=== PATIENT | female | born 1940 | race Caucasian/White ===

== ENCOUNTER 2021-07-03 11:49 | Day surgery (SDC) | payer OTHER, BC ==
[2021-07-01 14:46] LABS: Absolute Lymphocytes (CBC) 1.8 K/uL (0.7-4.9); Basophils % 0.7 % (0-1.3); Hematocrit 38.6 % (36.0-45.0); Lymphocytes % 27.6 % (15.3-44.8); MPV 8.4 fL (7.6-11.3); RBC Red Blood Cell Count 4.26 M/uL (3.86-4.86)
[2021-07-01 15:05] LABS: Protime INR 0.97
--- NOTE | 2021-07-01 15:12 | RAD REPORT ---
EXAM DESCRIPTION: RAD - Chest Pa And Lat (2 Views) - 07/01/2021 2:45 pm CLINICAL HISTORY: Pre Op pending heart cath COMPARISON: Two view chest October 2019 TECHNIQUE: Frontal and lateral views of the chest were obtained. FINDINGS: The lungs are clear of acute infiltrate, mass or failure finding. Mild chronic interstitia l lung pattern matches the comparison. Heart size is normal and central vasculature is within padmini l limits. No pleural effusion or pneumothorax seen. No acute bony finding noted. No aortic abnorma lity. IMPRESSION: No acute cardiopulmonary process. No significant change from comparison study.
[~2021-07-03 11:49] MED LIST: HEPA 1000U/500MLS 2,000 UNIT/1,000 ML BAG IV ONE; LIDOCAINE 1% 20 ML MDV ONE
[2021-07-03] MEDS ORDERED: NA CHLORIDE 0.9% 500 ML ONE (12:04)
[2021-07-03 12:30] VITALS: TEMP 97.7
[2021-07-03] MEDS ORDERED: FENTANYL CITR 100 MCG/2 ML ONE (13:52)
[2021-07-03] MEDS ORDERED: VERAPAMIL HCL 10 MG/4 ML VIAL IV ONE (13:52)
[2021-07-03] MEDS ORDERED: MIDAZOLAM HCL 2 MG/2 ML INJ ONE (13:52)
[2021-07-03] MEDS ORDERED: ATROPINE SULF 1 MG/10 ML SYR IV ONE (13:53)
[2021-07-03] MEDS ORDERED: NITROGLYCERIN 100 MCG/ML SYR (for cath lab use only) IV ONE (13:53)
[2021-07-03] MEDS ORDERED: NITROGLYCERIN/D5W 25 MG/250 ML BTL IV ONE (13:53)
[2021-07-03] MEDS ORDERED: HEPARIN 5000 UNIT/ML 1 ML VIAL ONE (13:53)
[2021-07-03] MEDS ORDERED: REGADENOSON 0.4 MG/5 ML SYR IV ONE (14:31)
[2021-07-03] MEDS ORDERED: CLOPIDOGREL 75 MG TABLET ONE (14:33)
[2021-07-03] MEDS ORDERED: ONDANSETRON 4 MG/2 ML VIAL ONE (15:05)
[2021-07-03 18:12] VITALS: BP 116/50; O2SAT 98
--- NOTE | 2021-07-04 01:51 | OP ---
Date of Procedure: 07/03/2021 Surgeon: MARK DEAN Procedures Performed: 1.Selective coronary angiogram. 2.Distal aortogram with runoff and peripheral angiogram. 3.FFR of mid LAD, moderate stenosis, value of 0.87. Access: Radial artery 6-[place], closed with TR band. Complications: None. Indication: Peripheral vascular disease and angina. Description Of Procedure: After risks, benefits, and alternatives were explained, patient agreed to procedure and signed informed consent. The patient was [facility], prepped and draped in usual sterile fashion. We accessed right radial artery using pediatric m icropuncture kit and placed a 6-[place] slender sheath and took a 5-[place] 4 catheter in the aor tic root and engaged left main and right coronary artery and advanced and took standard views and the n advanced over the wire and took LVEDP, and upon pullback, there was no gradient. We took the excha nge wire into distal aorta and exchanged for a 5-[place] pigtail and then did distal aortogram with ru noff, and then removed the catheter and sheath and placed TR band with good hemostasis. Findings: 1.Left main is large, normal. 2.LAD is large vessel with the midportion with diffuse 50% stenosis. FFR was negative at 0.87. Lef t circumflex is normal with normal luminal irregularities. 3.RCA is normal with diffuse 10 to 20% stenosis. 4.LVEDP of 16 mmHg. Peripheral Angiogram: 1.Distal aorta is patent. 2.Bilateral common iliacs and internal iliacs were patent with diffuse 10% to 20% stenosis, then cristin ateral femoral arteries, also the common femoral arteries are bilaterally patent with diffuse 20% to 30% stenosis. Then bilateral profunda are patent. The right SFA is patent all the way to below the knee with a 3-vessel runoff with diffuse small disease. 3.The left SFA is totally occluded at the ostium, is about 25 cm [employer] before it reconstitutes via col laterals from the profunda. [id number] on the left, patent vessels with flow all the way to the foot with mild diffuse disease. Conclusion: 1.Mild mid LAD stenosis with negative FFR of 0.87. 2.Left SFA ostial [employer]. Plan: Attempt left SFA [employer] intervention at [place]. STEPHEN Voice ID: [id number] Report ID: [id number]
== END 2021-07-03 18:48 | disposition home or self-care (01) ==
LOC: CCL 11:49
PROVIDERS: ATTEND Internal Medicine
DX: I70.203 Unspecified atherosclerosis of native arteries of extremities, bilateral legs (principal); I70.92 Chronic total occlusion of artery of the extremities; I25.10 Atherosclerotic heart disease of native coronary artery without angina pectoris; I65.23 Occlusion and stenosis of bilateral carotid arteries; I70.8 Atherosclerosis of other arteries; I10 Essential (primary) hypertension; E78.5 Hyperlipidemia, unspecified; Z87.891 Personal history of nicotine dependence; Z88.0 Allergy status to penicillin; Z88.6 Allergy status to analgesic agent; Z79.02 Long term (current) use of antithrombotics/antiplatelets; Z79.82 Long term (current) use of aspirin; Z20.822 Contact with and (suspected) exposure to COVID-19
CPT/HCPCS: 85025; 80048; 36415; 85610; 85730; 71046; 75630; 93458; 93571; U0003; C1893; J1644 ×2; J2250; J3010; J2785; J7040; J2405; 36200